=== PATIENT | male | born 1990 | race Caucasian/White ===

== ENCOUNTER 2018-10-03 14:10 | Emergency (ER) | payer SELFPAY ==
[~2018-10-03] VITALS: Ht 170.2 cm; Wt 62.6 kg
[2018-10-03 14:16] VITALS: BP_SYST 154
--- NOTE | 2018-10-03 14:16 | NUR ---
Patient to ER bed H1 to gown for evaluation. Side rails up. Report given to DEREK SHERMAN.
--- NOTE | 2018-10-03 14:30 | NUR ---
ER Dr. MARTINEZ at bedside examining patient.
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
--- NOTE | 2018-10-03 14:40 | NUR ---
PATIENT LEFT TO X RAY VIA GURNEY ACOMPANIED BY OFFICERS.
--- NOTE | 2018-10-03 15:10 | NUR ---
Patient given written and verbal discharge instructions and verbalizes understanding. ER MD discussed with patient the results and treatment provided. Patient in stable condition. ID arm band removed. Rx of naprosyn given. Patient educated on pain management and to follow up with PMD. Pain Scale 3/10 tolerable. Opportunity for questions provided and answered. Medication side effect fact sheet provided.
== END 2018-10-03 15:10 ==
LOC: SED 14:10
DX: S60.221A Contusion of right hand, initial encounter (principal); R03.0 Elevated blood-pressure reading, without diagnosis of hypertension; W20.8XXA Other cause of strike by thrown, projected or falling object, initial encounter; Y93.89 Activity, other specified; Y92.89 Other specified places as the place of occurrence of the external cause; Y99.8 Other external cause status
CPT/HCPCS: 99283